=== PATIENT | male | born 1990 | race African-American/Black ===

== ENCOUNTER 2016-12-05 10:19 | Emergency (ER) | payer OTHER ==
[~2016-12-05] VITALS: Ht 182.9 cm; Wt 82.0 kg
[~2016-12-05 10:19] MED LIST: LAMO100 PO
[2016-12-05 10:22] VITALS: BP 112/70; PULSE 80; RESP 14; TEMP 97.7
[2016-12-05 10:29] VITALS: BP 100/55; PULSE 80; RESP 14; O2SAT 97
[2016-12-05] MEDS ORDERED: LAMO100 PO ×2 (10:29→12:45)
[2016-12-05] MEDS ORDERED: lamoTRIgine 100 MG TAB PO ONE (10:30)
[2016-12-05] MEDS ORDERED: SODIUM CHLOR 0.9% 1000 ML INJ 1,000 ML IV ONE (10:30)
[2016-12-05] MEDS ORDERED: SODIUM CHLORIDE 0.9% FLUSH 5 ML FLUSH IVF PRN (10:30)
[2016-12-05 10:37] VITALS: O2SAT 97
--- NOTE | 2016-12-05 10:42 | PD ---
HPI Chief Complaint: Seizure Time Seen by Provider: 10:28 Travel History International Travel<30 days: No Contact w/Intl Traveler<30days: No Traveled to known affect area: No History of Present Illness HPI Patient is a 26-year-old male who presents to emergency room for evaluation of seizure. Patient has a history of seizure, reports that his last seizure was in January 2016. Patient reports that he does follow-up with neurologist and did see him recently, reports that he is taking Lamictal 100 mg 3 times a day for seizures. Patient reports that he forgot his dose of Lamictal last night. EMS reports that they were called on scene as patient had no witnessed seizure episode by his family while sitting on his couch. Reports that he had tonic- clonic seizures which lasted for a few minutes and resolved on its own. Patient was post ictal after his seizure episode. He with no incontinence of urine on scene. Patient with no trauma to the head or neck or no fall. Patient at this time has no complaints. Reports that he feels tired, denies headache or dizziness. Patient denies any ingestion of alcohol or any drugs. Patient denies chest pain or shortness of breath. Patient reports that he simply forgot to take his medications last night. Patient cannot tell me the name of neurologist as he can't remember his name. Patient with no other complaints. PFSH Past Medical History ADHD: Yes Diminished Hearing: No Seizures: Yes Tetanus Vaccination: Unknown Past Surgical History Abdominal Surgery: Yes ( L INGUINAL HERNIA REPAIR ) Family History Family History: Negative Social History Alcohol Use: Yes Tobacco Use: No Substance Use: No Allergies-Medications (Allergen,Severity, Reaction): Coded Allergies: Dilantin (Verified Allergy, Severe, Seizures, 12/05/16) Reported Meds & Prescriptions Reported Meds & Active Scripts Active Lamictal (Lamotrigine) 100 Mg Tab 100 Mg PO TID Reported Keppra (Levetiracetam) 500 Mg Tab 500 Mg PO BID Lamictal (Lamotrigine) 100 Mg Tab 100 Mg PO BID Review of Systems General / Constitutional: No: Fever Eyes: No: Visual changes HENT: No: Headaches Cardiovascular: No: Chest Pain or Discomfort Respiratory: No: Shortness of Breath Gastrointestinal: No: Abdominal Pain Genitourinary: No: Dysuria Musculoskeletal: No: Pain Skin: No Rash Neurologic: Positive: Seizures, No: Weakness Psychiatric: No: Depression Endocrine: No: Polydipsia Hematologic/Lymphatic: No: Easy Bruising Physical Exam Narrative GENERAL: No acute distress, nontoxic SKIN: Warm and dry. HEAD: Atraumatic. Normocephalic. EYES: Pupils equal and round, pupils are 3 and reactive. No scleral icterus. No injection or drainage. ENT: No nasal bleeding or discharge. Mucous membranes pink and moist. NECK: Trachea midline. No JVD. CARDIOVASCULAR: Regular rate and rhythm. No murmur appreciated. RESPIRATORY: No accessory muscle use. Clear to auscultation. Breath sounds equal bilaterally. GASTROINTESTINAL: Abdomen soft, non-tender, nondistended. Hepatic and splenic margins not palpable. MUSCULOSKELETAL: No obvious deformities. No clubbing. No cyanosis. No edema. NEUROLOGICAL: Awake and alert. No obvious cranial nerve deficits. Motor grossly within normal limits. Normal speech. PSYCHIATRIC: Appropriate mood and affect; insight and judgment normal. Data Data Last Documented VS Vital Signs Date Time Temp Pulse Resp B/P Pulse Ox O2 Delivery O2 Flow Rate FiO2 12/05/16 10:37 97 12/05/16 10:29 80 14 100/55 12/05/16 10:22 97.7 Orders Complete Blood Count With Diff (12/05/16 10:30) Alcohol (Ethanol) (12/05/16 10:30) Blood Glucose (12/05/16 10:30) Ecg Monitoring (12/05/16 10:30) Iv Access Insert/Monitor (12/05/16 10:30) Oximetry (12/05/16 10:30) Comprehensive Metabolic Panel (12/05/16 10:30) Sodium Chlor 0.9% 1000 Ml Inj (Ns 1000 M (12/05/16 10:30) Sodium Chloride 0.9% Flush (Ns Flush) (12/05/16 10:30) Ua Includes Microscopic (12/05/16 10:30) Lamotrigine (Lamictal) (12/05/16 10:30) Labs Laboratory Tests Test 12/05/16 12/05/16 10:33 11:29 White Blood Count 7.4 TH/MM3 Red Blood Count 4.47 MIL/MM3 Hemoglobin 13.3 GM/DL Hematocrit 39.8 % Mean Corpuscular Volume 89.1 FL Mean Corpuscular Hemoglobin 29.7 PG Mean Corpuscular Hemoglobin 33.4 % Concent Red Cell Distribution Width 14.5 % Platelet Count 272 TH/MM3 Mean Platelet Volume 7.9 FL Neutrophils (%) (Auto) 29.8 % Lymphocytes (%) (Auto) 56.8 % Monocytes (%) (Auto) 10.9 % Eosinophils (%) (Auto) 1.7 % Basophils (%) (Auto) 0.8 % Neutrophils # (Auto) 2.2 TH/MM3 Lymphocytes # (Auto) 4.2 TH/MM3 Monocytes # (Auto) 0.8 TH/MM3 Eosinophils # (Auto) 0.1 TH/MM3 Basophils # (Auto) 0.1 TH/MM3 CBC Comment AUTO DIFF Differential Comment AUTO DIFF CONFIRMED Sodium Level 141 MEQ/L Potassium Level 3.5 MEQ/L Chloride Level 106 MEQ/L Carbon Dioxide Level 20.8 MEQ/L Anion Gap 14 MEQ/L Blood Urea Nitrogen 10 MG/DL Creatinine 1.39 MG/DL Estimat Glomerular Filtration 74 ML/MIN Rate Random Glucose 152 MG/DL Calcium Level 8.0 MG/DL Total Bilirubin 0.2 MG/DL Aspartate Amino Transf 14 U/L (AST/SGOT) Alanine Aminotransferase 14 U/L (ALT/SGPT) Alkaline Phosphatase 72 U/L Total Protein 7.1 GM/DL Albumin 3.8 GM/DL Ethyl Alcohol Level LESS THAN 3 MG/DL Urine Color YELLOW Urine Turbidity CLEAR Urine pH 6.0 Urine Specific [place] 1.017 Urine Protein NEG mg/dL Urine Glucose (UA) NEG mg/dL Urine Ketones TRACE mg/dL Urine Occult Blood NEG Urine Nitrite NEG Urine Bilirubin NEG Urine Urobilinogen LESS THAN 2.0 MG/DL Urine Leukocyte Esterase NEG Urine RBC LESS THAN 1 /hpf Urine WBC LESS THAN 1 /hpf Urine Mucus FEW /lpf MDM Medical Decision Making Medical Screen Exam Complete: Yes Emergency Medical Condition: Yes Interpretation(s) Vital Signs Date Time Temp Pulse Resp B/P Pulse Ox O2 Delivery O2 Flow Rate FiO2 12/05/16 10:22 97.7 80 14 112/70 Differential Diagnosis Recurrent seizure due to medication noncompliance, electrolyte abnormality Narrative Course Patient is a 26-year-old male who presents to emergency room with recurrent seizures. Patient does have history of seizures and last seizure was in January 2016. Patient was brought to the emergency room as he had a witnessed seizure which lasted a few minutes while at home. Patient was postictal after seizure episode. No incontinence of urine. Patient with no complaints at this time. Patient placed on [place] upon arrival to the emergency room. Labs obtained, will give patient IV fluids. Will give patient dose of Lamictal an monitor him Patient reevaluated, patient alert and oriented 3. Patient's mother at bedside. Reports that he is to be taking 200 mg a Lamictal twice a day as well as Keppra 500 mg twice a day. Mom reports that It was making him feel tired so he isn't taking half the dose of his Keppra twice a day. Patient does not follow-up with neurologist and does follow-up with primary care doctor for seizures, given the fact the patient has had a seizure in January as well as today , mom will have him be seen by neurologist. I did review all labs and all studies with patient in detail. Patient will follow-up and return to emergency room as needed. Diagnosis Primary Impression: Seizure disorder Additional Impressions: Dehydration Renal insufficiency Patient Instructions: General Instructions Additional Instructions: Please follow-up with your primary care doctor as soon as possible Please take all medications as prescribed Please follow-up with neurologist Return to emergency room as needed Scripts Lamotrigine (Lamictal)100 Mg [id number] Mg PO TID #90 TAB Ref 0 Prov:Carolyn Corona DO 12/05/16 Disposition: 01 DISCHARGE HOME Condition: Carolyn Andrews DO Dec 05, 2016 10:42
[2016-12-05 10:43] LABS: AUTOMATED NEUTROPHIL # 2.2 TH/MM3 (1.8-7.7); BASOPHIL # 0.1 TH/MM3 (0-0.2); BASOPHIL % 0.8 % (0.0-2.0); EOSINOPHIL # 0.1 TH/MM3 (0-0.4); EOSINOPHIL % 1.7 % (0.0-4.0); HEMATOCRIT 39.8 % (39.0-51.0); LYMPH % 56.8 % (9.0-44.0); LYMPHOCYTE # 4.2 TH/MM3 (1.0-4.8); MEAN CELL VOLUME 89.1 FL (80.0-100.0); MEAN CORPUSCULAR HEMOGLOBIN 29.7 PG (27.0-34.0); MEAN CORPUSCULAR HGB CONC 33.4 % (32.0-36.0); MONO % 10.9 % (0.0-8.0); NEUT % 29.8 % (16.0-70.0); PLATELET COUNT 272 TH/MM3 (150-450); RED BLOOD COUNT 4.47 MIL/MM3 (4.50-5.90); RED CELL DISTRIBUTION WIDTH 14.5 % (11.6-17.2); WHITE BLOOD COUNT 7.4 TH/MM3 (4.0-11.0)
[2016-12-05 10:45] LABS: HEMO FLAGS AUTO DIFF
[2016-12-05 11:05] LABS: ANION GAP 14 MEQ/L (5-15)
[2016-12-05 11:09] LABS: ALKALINE PHOSPHATASE 72 U/L (45-117); ALT (GPT) 14 U/L (12-78); AST (GOT) 14 U/L (15-37); BICARBONATE 20.8 MEQ/L (21.0-32.0); BLOOD UREA NITROGEN 10 MG/DL (7-18); CHLORIDE 106 MEQ/L (98-107); GLOMERULAR FILTRATION RATE 74 ML/MIN (>89); POTASSIUM 3.5 MEQ/L (3.5-5.1); SODIUM (NA) 141 MEQ/L (136-145); TOTAL BILIRUBIN ADULT 0.2 MG/DL (0.2-1.0)
[2016-12-05 11:51] LABS: BLOOD, URINE NEG (NEG); GLUCOSE,URINE NEG (NEG); KETONE, URINE TRACE mg/dL (NEG); MUCUS URINE FEW /lpf (OCC); NITRITE,URINE NEG (NEG); URINE COLOR YELLOW (YELLW/STRAW)
[2016-12-05 12:02] LABS: SCAN/DIFF AUTO DIFF CONFIRMED
[2016-12-05] MEDS ORDERED: LEVE500 PO (12:50)
[2016-12-05] MEDS ORDERED: levETIRAcetam 500 MG TAB PO ONE (13:00)
[2017-02-03] MEDS ORDERED: LAMI200T PO (13:55)
[2017-02-17] MEDS ORDERED: LEVE500 PO (10:20)
[2017-02-17] MEDS ORDERED: LAMI200T PO (10:20)
[2017-02-17] MEDS ORDERED: BLOOD GLUCOSE M1 KIT (10:46)
[2017-02-25] MEDS ORDERED: PRED20 PO (16:33)
[2017-02-25] MEDS ORDERED: AMOX875T PO (16:33)
[2017-02-25] MEDS ORDERED: LIDO1SOL8 SWISH-SWAL (16:34)
[2017-04-07] MEDS ORDERED: LAMI200T PO (11:54)
[2017-04-07] MEDS ORDERED: LEVE500 PO (11:54)
== END 2016-12-05 13:20 | disposition home or self-care (01) ==
LOC: NEPE 10:19
DX: R56.9 Unspecified convulsions (principal); N28.9 Disorder of kidney and ureter, unspecified; E86.0 Dehydration; F10.10 Alcohol abuse, uncomplicated; F90.9 Attention-deficit hyperactivity disorder, unspecified type
CPT/HCPCS: 80053; 80320; 81001; 85025; 99284; J7030

== ENCOUNTER 2017-02-26 06:37 | Emergency (ER) | payer OTHER ==
[~2017-02-26] VITALS: Ht 180.3 cm; Wt 77.0 kg
[~2017-02-26 06:37] MED LIST changes: +AMOX875T PO; +BLOOD GLUCOSE M1 KIT; +LAMI200T PO; -LAMO100 PO; +LEVE500 PO; +LIDO1SOL8 SWISH-SWAL; +PRED20 PO
[2017-02-26 06:39] VITALS: BP 115/62; PULSE 99; RESP 15; TEMP 98.8; O2SAT 100
--- NOTE | 2017-02-26 07:34 | PD ---
HPI Chief Complaint: Pain: Acute or Chronic Time Seen by Provider: 07:17 Travel History International Travel<30 days: No Contact w/Intl Traveler<30days: No Traveled to known affect area: No History of Present Illness HPI Patient 26-year-old male presents with his mother for evaluation of hyperglycemia. Per mom patient was taken to an urgent care center yesterday after a three-day history of fever or chills body aches and sore throat. He was diagnosed with strep throat and placed on amoxicillin. Is also placed on steroids. The patient is prediabetic and was told to monitor her sugar at home. Mom was concerned because they didn't check his sugar of the patient at the urgent care. He also does have a seizure disorder and she is concerned about that. He does take antiepileptics as prescribed. Has not had a seizure this illness. PFSH Past Medical History ADHD: Yes Diminished Hearing: No Seizures: Yes Tetanus Vaccination: > 5 Years Influenza Vaccination: No Past Surgical History Abdominal Surgery: Yes ( L INGUINAL HERNIA REPAIR ) Social History Alcohol Use: Yes (OCC) Tobacco Use: No Substance Use: No Allergies-Medications (Allergen,Severity, Reaction): Coded Allergies: Dilantin (Verified Allergy, Severe, Seizures, 02/26/17) Reported Meds & Prescriptions Reported Meds & Active Scripts Active Lidocaine Viscous Liq 2 % Liqd 5 Ml SWISH-SWAL QID PRN Prednisone 20 Mg Tab 20 Mg PO DAILY Amoxicillin 875 Mg Tab 875 Mg PO BID Blood Glucose Monitoring W/Device (Device) 1 Kit Kit 1 Kit .ROUTE DAILY PRN Lamictal (Lamotrigine) 200 Mg Tab 200 Mg PO BID Keppra (Levetiracetam) 500 Mg Tab 500 Mg PO BID Review of Systems Except as stated in HPI: all other systems reviewed are Neg Physical Exam Narrative GENERAL: Well-developed well-nourished no apparent distress SKIN: Focused skin assessment warm/dry. HEAD: Atraumatic. Normocephalic. EYES: Pupils equal and round. No scleral icterus. No injection or drainage. ENT: No nasal bleeding or discharge. Mucous membranes pink and moist. Tonsils 3+ purulent. NECK: Trachea midline. No JVD. No lymphadenopathy CARDIOVASCULAR: Regular rate and rhythm. No murmur appreciated. RESPIRATORY: No accessory muscle use. Clear to auscultation. Breath sounds equal bilaterally. GASTROINTESTINAL: Abdomen soft, non-tender, nondistended. Hepatic and splenic margins not palpable. MUSCULOSKELETAL: No obvious deformities. No clubbing. No cyanosis. No edema. NEUROLOGICAL: Awake and alert. No obvious cranial nerve deficits. Motor grossly within normal limits. Normal speech. PSYCHIATRIC: Appropriate mood and affect; insight and judgment normal. Data Data Last Documented VS Vital Signs Date Time Temp Pulse Resp B/P Pulse Ox O2 Delivery O2 Flow Rate FiO2 02/26/17 06:39 98.8 99 15 115/62 100 Room Air Orders Bedside Glucose SEBASTIAN.AC&HS (02/26/17 07:22) Acetaminophen (Tylenol) (02/26/17 07:45) MDM Medical Decision Making Medical Screen Exam Complete: Yes Emergency Medical Condition: Yes Differential Diagnosis Hyperglycemia, mono, strep throat, URI, DKA unlikely. Narrative Course Patient 26-year-old male who appears well and nontoxic has signs symptoms consistent with streptococcal pharyngitis. He is already on antibiotics. Mother is concerned about his sugar control given course of steroids that was prescribed to him. His sugar was checked and is reasonably well controlled at 102. Mother is reassured with this. He appears well and is no indication for recurrent workup. He is stable for discharge this time. Discussed follow-up with primary care physician and return to ED criteria. Diagnosis Primary Impression: Acute tonsillitis Qualified Code: J03.00 - Acute streptococcal tonsillitis, not specified as recurrent or not Additional Instructions: Continue off taking all of your antibiotics until gone. Disposition: 01 DISCHARGE HOME Condition: Stable Juan Jose Mariee MD Feb 26, 2017 07:34
[2017-02-26] MEDS ORDERED: ACETAMINOPHEN 500 MG CPLT PO ONE (07:45)
[2017-04-07] MEDS ORDERED: LAMI200T PO (11:54)
[2017-04-07] MEDS ORDERED: LEVE500 PO (11:54)
== END 2017-02-26 08:24 | disposition home or self-care (01) ==
LOC: NEPE 06:37
DX: J03.00 Acute streptococcal tonsillitis, unspecified (principal); G40.909 Epilepsy, unspecified, not intractable, without status epilepticus
CPT/HCPCS: 99282